=== PATIENT | female | born 1935 | race Caucasian/White ===

== ENCOUNTER → 2017-01-04 | Outpatient (CLI) | payer OTHER ==
--- NOTE | ~2017-01-04 | 2DMMODE ---
[facility] [place] [address] 2 D/M-MODE ECHOCARDIOGRAM Name: EVONNE ELDRIDGE Room #: REG [facility]#: [id number] Admission: 01/04/17 Attend Phys: Tay Preston, Discharge: Date of : 31 Date of Service: 01/04/17 1413 Report #: [id number] THIS REPORT FOR: //name// APPROVED REPORT Study performed: 01/04/2017 12:24:34 EXAM: Comprehensive 2D, Doppler, and color-flow Echocardiogram Patient Location: Out-Patient Blood Pressure: 144/72 mmHg HR: 50 bpm Rhythm: Bradycardia Other Information Study Quality: Adequate Indications Atrial Fibrillation hX: AFIB, HTN, HLP 2D Dimensions RVDd: 28.59 mm LVEF(%): 60.49 (>50%) IVSd: 11.21 (7-11mm) LVOT Diam: 20.82 (18-24mm) LVDd: 44.33 mm PWd: 10.32 (7-11mm) Ascending Ao: 30.91 (22-36mm) LVDs: 30.10 (25-40mm) Aortic Root: 33.13 mm Little's LVEF: 60.49 % Volumes Left Atrial Volume (Systole) Single Plane 4CH: 55.67 mL Single Plane 2CH: 61.27 mL LA ESV Index: 37.00 mL/m2 Aortic Valve AoV Peak Jayro.: 0.95 m/s AO Peak Gr.: 3.61 mmHg LVOT Max P.54 mmHg LVOT Max V: 0.80 m/s Mitral Valve E/A Ratio: 1.3 MV Decel. Time: 183.61 ms [facility] [address] [place] [address] 2 D/M-MODE ECHOCARDIOGRAM Name: EVONNE ELDRIDGE Room #: [facility]#: [id number] Admission: 01/04/17 Attend Phys: Tay Preston, Discharge: Date of : 31 Date of Service: 01/04/17 1413 Report #: [id number] MV E Max Jayro.: 0.86 m/s MV A Jayro.: 0.66 m/s MV PHT: 53.25 ms Pulmonary Valve PV Peak Jayro.: 0.67 m/s PV Peak Gr.: 1.81 mmHg Pulmonary Vein P Vein S: 64.2 m/s P Vein D: 45.4 m/s P Vein A Dur.: 34.8 m/s Tricuspid Valve TR Peak Jayro.: 2.19 m/s RAP Estimate: 5.00 mmHg TR Peak Gr.: 19.21 mmHg RVSP: 24.00 mmHg Left Ventricle The left ventricle is normal size. There is normal LV segmental wall motion. There is normal left ventricular wall thickness. Left ventricular systolic function is normal. LVEF is 55-60%. Grade II - pseudonormal filling dynamics. Right Ventricle The right ventricle is normal size. The right ventricular systolic function is normal. Atria Left atrium is mildly dilated. The right atrium size is normal. Aortic Valve The aortic valve is normal in structure. Trace aortic regurgitation. There is no aortic valvular stenosis. Mitral Valve The mitral valve is normal in structure. Mild to moderate mitral regurgitation. Tricuspid Valve The tricuspid valve is normal in structure. There is trace tricuspid regurgitation. The right atrial pressure is estimated at 5 mmHg. Estimated PAP is 24mmHg. Pulmonic Valve The pulmonary valve is normal in structure. Trace pulmonic regurgitation. [facility] [address] [place] [address] 2 D/M-MODE ECHOCARDIOGRAM Name: EVONNE ELDRIDGE Room #: [facility] SILVINA Méndez#: [id number] Admission: 01/04/17 Attend Phys: Tay Preston, Discharge: Date of : 31 Date of Service: 01/04/17 1413 Report #: [id number] Great Vessels The aortic root is normal in size. The ascending aorta is normal in size. IVC is normal in size and collapses >50% with inspiration. Pericardium There is no pericardial effusion. <Conclusion> The left ventricle is normal size. Left ventricular systolic function is normal. Grade II - pseudonormal filling dynamics. The right ventricle is normal size. Left atrium is mildly dilated. Trace aortic regurgitation. Mild to moderate mitral regurgitation. There is no pericardial effusion. <ELECTRONICALLY SIGNED> By: Tay Preston MD, FACC 01/04/171412 12 12 Tay Preston MD, FACC /INF
== END ==
LOC: CV 09:21
DX: I48.91 Unspecified atrial fibrillation (principal); I10 Essential (primary) hypertension; E78.5 Hyperlipidemia, unspecified

== ENCOUNTER → 2017-02-09 | Outpatient (CLI) | payer OTHER | LOC: BC 04:37 | DX: Z12.31 Encounter for screening mammogram for malignant neoplasm of breast (principal) ==

== ENCOUNTER → 2017-03-08 | Outpatient (CLI) | payer OTHER | LOC: ULTRA 07:32 | DX: I70.1 Atherosclerosis of renal artery (principal); I10 Essential (primary) hypertension ==

== ENCOUNTER → 2018-03-27 | Outpatient (CLI) | payer OTHER | LOC: RAD 04:26 | DX: Z12.31 Encounter for screening mammogram for malignant neoplasm of breast (principal) ==

== ENCOUNTER → 2020-03-11 | Outpatient (CLI) | payer OTHER | LOC: SJCVC 14:24 | PROVIDERS: ATTEND Internal Medicine Cardiovascular Disease | DX: I48.0 Paroxysmal atrial fibrillation (principal); I34.0 Nonrheumatic mitral (valve) insufficiency; I10 Essential (primary) hypertension; E78.00 Pure hypercholesterolemia, unspecified; I70.1 Atherosclerosis of renal artery; Z79.01 Long term (current) use of anticoagulants; Z79.899 Other long term (current) drug therapy; Z82.49 Family history of ischemic heart disease and other diseases of the circulatory system ==

== ENCOUNTER → 2020-07-21 | Outpatient (CLI) | payer OTHER | LOC: SJCVCIMAG 09:22 | PROVIDERS: ATTEND Internal Medicine Cardiovascular Disease | DX: I08.8 Other rheumatic multiple valve diseases (principal); I10 Essential (primary) hypertension; E78.00 Pure hypercholesterolemia, unspecified; M35.00 Sjogren syndrome, unspecified; I70.1 Atherosclerosis of renal artery; I48.0 Paroxysmal atrial fibrillation; Z79.899 Other long term (current) drug therapy; Z82.49 Family history of ischemic heart disease and other diseases of the circulatory system ==

== ENCOUNTER → 2021-03-24 | Outpatient (CLI) | payer OTHER | LOC: SJCVC 14:36 | PROVIDERS: ATTEND Internal Medicine Cardiovascular Disease | DX: I48.0 Paroxysmal atrial fibrillation (principal); I10 Essential (primary) hypertension; E78.00 Pure hypercholesterolemia, unspecified; I70.1 Atherosclerosis of renal artery; I34.0 Nonrheumatic mitral (valve) insufficiency; E78.5 Hyperlipidemia, unspecified; M35.00 Sjogren syndrome, unspecified; Z90.49 Acquired absence of other specified parts of digestive tract; Z88.8 Allergy status to other drugs, medicaments and biological substances; Z79.899 Other long term (current) drug therapy; Z82.49 Family history of ischemic heart disease and other diseases of the circulatory system ==

== ENCOUNTER → 2021-09-27 | Outpatient (CLI) | payer OTHER | LOC: SJCVC 11:04 | PROVIDERS: ATTEND Internal Medicine Cardiovascular Disease | DX: R94.31 Abnormal electrocardiogram [ECG] [EKG] (principal); I48.0 Paroxysmal atrial fibrillation; I38 Endocarditis, valve unspecified; D68.59 Other primary thrombophilia; I10 Essential (primary) hypertension; E78.00 Pure hypercholesterolemia, unspecified; I70.1 Atherosclerosis of renal artery; Z98.890 Other specified postprocedural states; Z79.899 Other long term (current) drug therapy; Z88.8 Allergy status to other drugs, medicaments and biological substances ==